=== PATIENT | male | born 1995 | race Caucasian/White ===

== ENCOUNTER 2020-05-06 15:12 | Outpatient (RCR) | payer OTHER | END 2020-06-10 13:07 | disposition home or self-care (01) | LOC: WSOH 15:12 | DX: S00.83XD Contusion of other part of head, subsequent encounter (principal); S06.0X0D Concussion without loss of consciousness, subsequent encounter; F17.210 Nicotine dependence, cigarettes, uncomplicated; R00.1 Bradycardia, unspecified; Z90.89 Acquired absence of other organs; Y99.0 Civilian activity done for income or pay ==

== ENCOUNTER 2021-12-02 19:07 | Emergency (ER) | payer MEDICAID ==
[~2021-12-02] VITALS: Ht 182.9 cm; Wt 75.0 kg
[2021-12-02 19:15] VITALS: TEMP 98.2
[2021-12-02] MEDS ORDERED: DOXYCYCLINE 10100 MG PO (20:23)
[2021-12-02 20:36] VITALS: BP 134/88; PULSE 63
== END 2021-12-02 20:36 | disposition home or self-care (01) ==
LOC: COL.ER 19:07
DX: S61.231A Puncture wound without foreign body of left index finger without damage to nail, initial encounter (principal); F17.200 Nicotine dependence, unspecified, uncomplicated; Z28.310 Unvaccinated for COVID-19; W27.8XXA Contact with other nonpowered hand tool, initial encounter